=== PATIENT | male | born 1985 | race Caucasian/White ===

== ENCOUNTER → 2019-03-13 05:57 | Day surgery (SDC) | payer OTHER ==
[~2019-03-13 05:57] MED LIST: Buffered Lidocaine 1% SYRIN* 1 ML/SYRINGE INTRADERM ONE; Bupivacaine 0.25% SDV PF* 10 ML VIAL INJ ONE; Lactated Ringers 1000 ML Bag* 1,000 ML IV SCH; Lidocain 1% EPI 1:100,000 * 30 ML MDV ONE; Midazolam* 1 MG/ML 5 ML VIAL (5 MG) ONE; Mineral Oil Sterile, TOPICAL* 25 ML BTL ONE; Naloxone* 0.4 MG/ML 1 ML VIAL IV PRN; Ondansetron INJ* 2 MG/ML VIAL IV PRN; ceFAZolin 2 GM PREMIX in ORs 2 GM/50 ML BAG IVPB ONE; fentaNYL* 50 MCG/ML 2 ML VIAL (100 MCG VIAL) ONE
[2019-03-13 08:41] VITALS: BP 117/70
== END | disposition home or self-care (01) ==
LOC: OR 05:57
PROVIDERS: ATTEND Plastic Surgery
DX: D17.0 Benign lipomatous neoplasm of skin and subcutaneous tissue of head, face and neck (principal); J45.909 Unspecified asthma, uncomplicated
CPT/HCPCS: 88304; A9270-GY; J0690; J2250; J3010; J3490